=== PATIENT | male | born 1980 | race Two or more races ===

== ENCOUNTER 2018-02-23 09:58 | Emergency (ER) | payer OTHER ==
[~2018-02-23] VITALS: Ht 175.3 cm; Wt 113.4 kg
[~2018-02-23 09:58] MED LIST: AMOX1TAB12 PO; BACTROBAN OINT22 GM TP; DOLOGESIC CAPLE1 TAB PO; FLEXERIL10 MG PO; MEDROLPACK PO; MOTRIN800 MG PO; NEURONTIN300 MG PO; NORVASC10 MG PO; ORPH100T PO; PERCOCET 5/321 UDTAB PO; ULTRAM50 MG PO; ZOCOR20 MG
== END 2018-02-23 15:35 | disposition home or self-care (01) ==
LOC: ER 09:58
DX: J40 Bronchitis, not specified as acute or chronic (principal)

== ENCOUNTER → 2018-07-04 | Emergency (ER) | payer OTHER ==
[~2018-07-04] VITALS: Ht 175.3 cm; Wt 117.9 kg
== END | disposition home or self-care (01) ==
LOC: ER 18:24
DX: M54.16 Radiculopathy, lumbar region (principal); M54.5 Low back pain; K29.70 Gastritis, unspecified, without bleeding

== ENCOUNTER → 2018-11-27 | Emergency (ER) | payer OTHER ==
[~2018-11-27] VITALS: Ht 175.3 cm; Wt 99.8 kg
== END | disposition home or self-care (01) ==
LOC: ER 18:46
DX: M25.462 Effusion, left knee (principal)

== ENCOUNTER 2019-04-16 08:18 | Emergency (ER) | payer OTHER ==
[~2019-04-16] VITALS: Ht 175.3 cm; Wt 118.8 kg
[2019-04-16] MEDS ORDERED: XANAX1 MG PO (15:36)
== END 2019-04-16 16:11 | disposition home or self-care (01) ==
LOC: ER 08:18
DX: R00.2 Palpitations (principal); R42 Dizziness and giddiness

== ENCOUNTER 2019-08-20 12:04 | Inpatient (IN) | payer OTHER ==
[~2019-08-20] VITALS: Ht 175.3 cm; Wt 117.9 kg
[~2019-08-20 12:04] MED LIST changes: +XANAX1 MG PO
[2019-08-27] MEDS ORDERED: NIFEDIPINE ER30 MG PO (13:59)
[2019-08-27] MEDS ORDERED: SIMVASTATIN20 MG PO (13:59)
[2019-08-27] MEDS ORDERED: LOSARTAN-HCTZ1 EAC2 PO (13:59)
== END 2019-08-27 15:04 | disposition home or self-care (01) | DRG 603 ==
LOC: ER 12:04 → MEDJ 19:30 → SEC-K 19:30 → MEDJ 08-21 02:34
PROVIDERS: ADMIT Internal Medicine
PROC: BP4 Imaging, Non-Axial Upper Bones, Ultrasonography (ICD-10-PCS; 2019-08-20)
PROC: BP3DYZZ Magnetic Resonance Imaging (MRI) of Left Hand/Finger Joint using Other Contrast (ICD-10-PCS; principal; 2019-08-21)
DX: L03.114 Cellulitis of left upper limb (principal); I10 Essential (primary) hypertension; M54.16 Radiculopathy, lumbar region; M65.842 Other synovitis and tenosynovitis, left hand; E66.09 Other obesity due to excess calories; B95.61 Methicillin susceptible Staphylococcus aureus infection as the cause of diseases classified elsewhere
CPT/HCPCS: 73218

== ENCOUNTER 2020-02-07 12:06 | Emergency (ER) | payer OTHER ==
[~2020-02-07] VITALS: Ht 175.3 cm; Wt 120.2 kg
[~2020-02-07 12:06] MED LIST changes: +LOSARTAN-HCTZ1 EAC2 PO; +NIFEDIPINE ER30 MG PO; +SIMVASTATIN20 MG PO
== END 2020-02-07 12:41 | disposition home or self-care (01) ==
LOC: ER 12:06
DX: J06.9 Acute upper respiratory infection, unspecified (principal)